=== PATIENT | female | born 1960 | race Caucasian/White ===

== ENCOUNTER 2019-10-04 21:01 | Emergency (ER) | payer SELFPAY | END 2019-10-04 21:13 | disposition left against medical advice (07) | LOC: ED 21:01 | DX: Z53.21 Procedure and treatment not carried out due to patient leaving prior to being seen by health care provider (principal) ==

== ENCOUNTER 2020-04-08 16:57 | Emergency (ER) | payer MEDICARE ==
--- NOTE | 2020-04-08 18:36 | Emergency Department Report ---
Blank Doc - Documentation Documentation: 59-year-old female that presents with bilateral leg swelling. This initial assessment/diagnostic orders/clinical plan/treatment(s) is/are subject to change based on patient's health status, clinical progression and re- assessment by fellow clinical providers in the ED. Further treatment and workup at subsequent clinical providers discretion. Patient/guardians urged not to elope from the ED as their condition may be serious if not clinically assessed and managed. Initial orders include: 1- Patient sent to [facility] for further evaluation and treatment 2- labs 3- EKG
[2020-04-08 21:42] LABS: Basophils % (Auto) 0.6 % (0.0-1.8); Eosinophils % (Auto) 0.7 % (0.0-4.3); Hematocrit 34.8 % (30.3-42.9); Hemoglobin 11.8 gm/dl (10.1-14.3); Lymphocytes % (Auto) 29.8 % (13.4-35.0); Mean Corpuscular HGB Conc 34 % (30-34); Mean Corpuscular Volume 96 fl (79-97); Monocytes # (Auto) 0.7 K/mm3 (0.0-0.8); Monocytes % (Auto) 10.3 % (0.0-7.3); Platelet Count 372 K/mm3 (140-440); Red Blood Count 3.61 M/mm3 (3.65-5.03); Red Cell Distribution Width 14.2 % (13.2-15.2)
[2020-04-08 21:46] LABS: Alanine Aminotransferase 16 units/L (7-56); Albumin 4.3 g/dL (3.9-5); BUN/Creatinine Ratio 11; Blood Urea Nitrogen 9 mg/dL (7-17); Calcium 9.9 mg/dL (8.4-10.2); Hemolysis Index 8
[2020-04-09] MEDS ORDERED: FUROSEMIDE 20 MG TAB PO ONE (07:44)
--- NOTE | 2020-04-09 07:45 | Emergency Department Report ---
ED General Adult HPI - General Chief complaint: Extremity Problem,Nontraumatic Stated complaint: EDEMA PUI?: No Time Seen by Provider: 04/08/20 18:35 Source: patient, RN notes reviewed Mode of arrival: Ambulatory Limitations: No Limitations, Other (Patient is disorganized and is a poor historian) - History of Present Illness Initial comments: The patient was evaluated in the emergency department for symptoms described in the history of present illness. He/she was evaluated in the context of the global COVID-19 pandemic, which necessitated consideration that the patient might be at risk for infection with the virus that causes COVID-19. Institutional protocols and algorithms that pertain to the evaluation of patients at risk for COVID-19 are in a state of rapid change based on information released by regulatory bodies including the CDC and federal and state organizations. These policies and algorithms were followed during the patient's care in the emergency department. Please note that these policies, procedures and recommendations changed on a rapid basis. The patient is a 59-year-old female. She is not known to myself previously. She reportedly has a history of bipolar disorder and diabetes. The patient presents to the ER with a complaint of nontraumatic painless bilateral lower extremity swelling. She tells me it has "been there for a very long time." The patient states that she has been "walking a lot." The patient also states that she is a "time traveler." She reports that she is "traveling through the realms." She denies headache, neck pain, chest pain, abdominal pain, shortness of breath, urinary symptoms, homicidality and suicidality. She states that she does not currently have a gun, but she plans on getting a gun, "to defend myself in case I get robbed." The patient states that she gets "shots" for her chronic psychiatric disease. She states that "I do not like Seroquel, because it makes my beautiful hair fall out, and I am suing them." She states she does not currently take lithium. She has a hospital band on her right upper extremity, "I did not take it off." Location: left, right, lower extremity Quality: constant Improves with: none Worsens with: none Associated Symptoms: denies other symptoms - Related Data Allergies Allergy/AdvReac Type Severity Reaction Status Date / Time Penicillins Allergy Unknown Verified 04/08/20 18:36 ED Review of Systems ROS: Stated complaint: EDEMA Other details as noted in HPI Constitutional: denies: fever Eyes: denies: eye discharge ENT: denies: epistaxis Respiratory: denies: cough Cardiovascular: edema. denies: chest pain Gastrointestinal: denies: abdominal pain, nausea, vomiting, hematemesis, melena, hematochezia Genitourinary: denies: dysuria Musculoskeletal: myalgia Psychiatric: as per HPI. denies: homicidal thoughts, suicidal thoughts ED Past Medical Hx - Past Medical History Hx Diabetes: Yes Hx Psychiatric Treatment: Yes (BIPOLAR) - Surgical History Past Surgical History?: No ED Physical Exam - General Limitations: Other (Patient is somewhat disorganized) General appearance: alert, in no apparent distress - Head Head exam: Present: atraumatic, normocephalic - Eye Eye exam: Present: normal appearance, EOMI. Absent: nystagmus - ENT ENT exam: Present: normal exam, normal orophraynx, mucous membranes moist, normal external ear exam - Neck Neck exam: Present: normal inspection, full ROM. Absent: tenderness, meningismus - Respiratory Respiratory exam: Present: normal lung sounds bilaterally. Absent: respiratory distress, wheezes, rales, rhonchi, stridor - Cardiovascular Cardiovascular Exam: Present: regular rate, normal rhythm, normal heart sounds. Absent: bradycardia, tachycardia, irregular rhythm, systolic murmur, diastolic murmur, rubs, gallop - GI/Abdominal GI/Abdominal exam: Present: soft. Absent: distended, tenderness, guarding, rebound, rigid, pulsatile mass - Extremities Exam Extremities exam: Present: normal inspection, full ROM, pedal edema, other (2+ pulses noted in the bilateral upper and lower extremities. There is no palpable cord. negative Homans sign. Muscular compartments are soft. The pelvis is stable.). Absent: calf tenderness - Back Exam Back exam: Present: normal inspection, full ROM. Absent: tenderness, CVA tenderness (R), CVA tenderness (L), paraspinal tenderness, vertebral tenderness - Neurological Exam Neurological exam: Present: alert, oriented X3, normal gait, other (No facial droop. Tongue midline. Extraocular movements intact bilaterally. Facial sensation intact to light touch in V1, V2, V3 distribution bilaterally. 5 and a 5 strength in 4 extremities. Sensation intact to light touch in 4 extremities.). Absent: motor sensory deficit - Psychiatric Psychiatric exam: Present: flat affect. Absent: homicidal ideation, suicidal ideation - Skin Skin exam: Present: warm, dry, intact, normal color. Absent: rash ED Course Vital Signs 04/08/20 04/09/20 04/09/20 18:38 07:14 19:31 Temperature 98.6 F 98.3 F Pulse Rate 87 94 H 99 H Respiratory 16 18 18 Rate Blood Pressure 144/81 133/76 Blood Pressure 133/109 [Right] O2 Sat by Pulse 100 99 97 Oximetry 04/10/20 04/10/20 04/10/20 01:49 09:06 20:50 Temperature 98.0 F 97.5 F L 98.6 F Pulse Rate 80 74 83 Respiratory 18 18 18 Rate Blood Pressure 134/72 135/76 Blood Pressure 127/66 [Right] O2 Sat by Pulse 96 100 97 Oximetry 04/11/20 02:40 Temperature 98.6 F Pulse Rate 81 Respiratory 18 Rate Blood Pressure Blood Pressure 105/52 [Right] O2 Sat by Pulse 98 Oximetry - Reevaluation(s) Reevaluation #1: 04/09/20 08:36 Differential diagnosis, including but not limited to: Dependent edema, renal insufficiency, hepatic insufficiency, congestive heart failure, psychosis Disorganized behavior Assessment and plan: 04/09/20 08:37 59-year-old female with a primary complaint of bilateral lower extremity swelling, Who is not tachycardic, tachypneic or hypoxic, who appears to have dependent edema, with normal renal function and hepatic function. However, she is somewhat disorganized, and has bizarre thought process. She is cooperative, pleasant, alert to name, location and month, but her thought process appears to be circuitous. Placed patient on hold status, obtain serum toxicologic studies, initiate Lasix therapy, and obtain psychiatric consultation. X-ray of the chest is reviewed and appreciated, patient will be changed out into a green gown, as per protocol, and we will repeat x-ray of the chest. Reevaluation #2: 04/09/20 12:09 Repeat x-ray showed persistent foreign body in the right upper quadrant. CT scan of the abdomen pelvis was thus obtained, especially given history of disorganized behavior and psychosis, and demonstrated a small foreign body in the stomach. Patient still making comments about witchcraft. Patient continues to remain on hold status, and a psychiatric consultation is pending. They have verbally requested a coronavirus test. We do not clinically suspect coronavirus. However, in order to facilitate p lacement, this test will be ordered. At this point in time, patient does not appear to have an immediate medical contraindication to psychiatric admission, evaluation, consultation and placement. Urinalysis is pending at this time. Reevaluation #3: 04/11/20 08:04 Patient continues to remain medically suitable for psychiatric placement, consultation and evaluation. The patient is refusing her COVID test. The patient in my pain does not appear to exhibit decision-making capacity. The patient is insisting that she had an outpatient COVID test done last week, which was negative, "somewhere in [facility]." She states the test was performed by "a doctor that I have never seen before." She does not know where this test took place specifically, and who ordered the test. She also would not give me the results of the test. She also tells me " are you trying to make me a witch." While the patient does not appear to have an emergent medical condition at this time, especially when that would preclude psychiatric placement and evaluation, I would formally request/recommend a capacity evaluation by the psychiatry team, to determine the patient's capacity for refusal of nonemergent diagnostic testing. It is my opinion that the patient does not appear to have decision-making capacity, however, this test is not emergently indicated medically, therefore, we cannot obtain the test without her consent, or without consent of a surrogate decision-maker. ED Medical Decision Making - Lab Data Result diagrams: 04/08/20 19:35 04/08/20 19:35 Vital Signs 04/08/20 04/09/20 18:38 07:14 Temperature 98.6 F Pulse Rate 87 94 H Respiratory 16 18 Rate Blood Pressure 144/81 Blood Pressure 133/109 [Right] O2 Sat by Pulse 100 99 Oximetry Lab Results 04/08/20 04/08/20 Range/Units 19:35 19:35 WBC 6.8 (4.5-11.0) K/mm3 RBC 3.61 L (3.65-5.03) M/mm3 Hgb 11.8 (10.1-14.3) gm/dl Hct 34.8 (30.3-42.9) % MCV 96 (79-97) fl MCH 33 H (28-32) pg MCHC 34 (30-34) % RDW 14.2 (13.2-15.2) % Plt Count 372 (140-440) K/mm3 Lymph % (Auto) 29.8 (13.4-35.0) % Ocean % (Auto) 10.3 H (0.0-7.3) % Eos % (Auto) 0.7 (0.0-4.3) % Baso % (Auto) 0.6 (0.0-1.8) % Lymph # (Auto) 2.0 (1.2-5.4) K/mm3 Ocean # (Auto) 0.7 (0.0-0.8) K/mm3 Eos # (Auto) 0.0 (0.0-0.4) K/mm3 Baso # (Auto) 0.0 (0.0-0.1) K/mm3 Seg Neutrophils % 58.6 (40.0-70.0) % Seg Neutrophils # 4.0 (1.8-7.7) K/mm3 Sodium 141 (137-145) mmol/L Potassium 4.7 (3.6-5.0) mmol/L Chloride 99.6 (98-107) mmol/L Carbon Dioxide 27 (22-30) mmol/L Anion Gap 19 mmol/L BUN 9 (7-17) mg/dL Creatinine 0.8 (0.6-1.2) mg/dL Estimated GFR > 60 ml/min BUN/Creatinine Ratio 11 % Glucose 144 H (65-100) mg/dL Calcium 9.9 (8.4-10.2) mg/dL Total Bilirubin 0.50 (0.1-1.2) mg/dL AST 14 (5-40) units/L ALT 16 (7-56) units/L Alkaline Phosphatase 180 H (35-129) units/L NT-Pro-B Natriuret Pep 28.17 (0-900) pg/mL Total Protein 6.6 (6.3-8.2) g/dL Albumin 4.3 (3.9-5) g/dL Albumin/Globulin Ratio 1.9 % - Radiology Data Radiology results: report reviewed, image reviewed Print Report Referring Physician: ОЛЕГ VALLEJO Patient Name: LINDA GU Date of : 1960 Sex: Female Report Date: 2020-04-09 Report Status: Finalized Findings [facility] [address] [place] [address] XRay Report Signed Patient: LINDA GU MR#: [id number] : 1960 Acct:[id number] Age/Sex: 59 / F ADM Date: 04/08/20 Loc: ED Attending Dr: Ordering Physician: ОЛЕГ VALLEJO MD Date of Service: 04/09/20 Procedure(s): XR chest 1V ap Accession Number(s): [id number] cc: ОЛЕГ VALLEJO MD Fluoro Time In Minutes: CHEST 1 VIEW INDICATION / CLINICAL INFORMATION: lower exct edema. COMPARISON: None available. FINDINGS: SUPPORT DEVICES: None. HEART / MED IASTINUM: No significant abnormality. LUNGS / PLEURA: No significant pulmonary or pleural abnormality. No pneumothorax. No interstitial pulmonary edema or pleural effusion. ADDITIONAL FINDINGS: There is a round radiopaque foreign object projecting over the right upper abdominal quadrant. I presume this is on the patient's person and not within the patient. IMPRESSION: 1. No acute pulmonary or pleural disease. . Signer Name: Hillary Barnes MD Signed: 04/09/2020 8:16 AM Workstation Name: [id number] Transcribed By: JR Dictated By: Hillary Barnes MD Electronically Authenticated By: Hillary Barnes MD Signed Date/Time: 04/09/20815 DD/ 4 TD/TT: Critical care attestation.: If time is entered above; I have spent that time in minutes in the direct care of this critically ill patient, excluding procedure time. ED Disposition Clinical Impression: Dependent edema, Foreign body ingestion, Disorganized behavior, Medical clearance for psychiatric admission Disposition: DC/TX-65 PSY HOSP/PSY UNIT Is pt being admited?: No Does the pt Need Aspirin: No Condition: Stable Referrals: KARINA MORELOSKENTON MD KISHOR [Primary Care Provider] - 3-5 Days
--- NOTE | 2020-04-09 08:20 | XRay Report ---
CHEST 1 VIEW INDICATION / CLINICAL INFORMATION: lower exct edema. COMPARISON: None available. FINDINGS: SUPPORT DEVICES: None. HEART / MEDIASTINUM: No significant abnormality. LUNGS / PLEURA: No significant pulmonary or pleural abnormality. No pneumothorax. No interstitial pul monary edema or pleural effusion. ADDITIONAL FINDINGS: There is a round radiopaque foreign object projecting over the right upper abdom inal quadrant. I presume this is on the patient's person and not within the patient. IMPRESSION: 1. No acute pulmonary or pleural disease. . Signer Name: Hillary Barnes MD Signed: 04/09/2020 8:16 AM Workstation Name: [id number]
--- NOTE | 2020-04-09 08:55 | XRay Report ---
CHEST 1 VIEW INDICATION / CLINICAL INFORMATION: repeat for foreign body assessment. COMPARISON: 04/09/2020 at 0743 hours FINDINGS: SUPPORT DEVICES: None. HEART / MEDIASTINUM: No significant abnormality. LUNGS / PLEURA: No significant pulmonary or pleural abnormality. No pneumothorax. ADDITIONAL FINDINGS: Round metallic object persists in the right upper quadrant IMPRESSION: Round metallic object remains in the right upper quadrant unchanged from earlier exam Signer Name: Franklin Hicks MD FACR Signed: 04/09/2020 8:51 AM Workstation Name: [email or web address]
--- NOTE | 2020-04-09 11:47 | Cat Scan Report ---
CT ABDOMEN AND PELVIS WITHOUT IV CONTRAST INDICATION: metallic foreign body ingestion. COMPARISON: None available. TECHNIQUE: All CT scans at this facility use dose modulation, automated exposure control, iterative reconstructi on or weight based dosing, when appropriate, to reduce radiation dose to as low as reasonably achieva ble. FINDINGS: Lung Bases: No significant abnormality. Skeletal System: No acute abnormality. ABDOMEN: Liver: There is a punctate hypodensity in the right lobe which is most likely a cyst. Gallbladder: No significant abnormality. Bile Ducts: No significant abnormality. Pancreas: No significant abnormality. Spleen: No significant abnormality. Adrenals: No significant abnormality. Right Kidney: Hypodense cortical lesions are likely cysts. Left Kidney: No significant abnormality. Upper GI tract: The stomach is distended with food. There is a punctate density within the distal sto mach/antrum (series 2 image 53). Lymph Nodes: No significant adenopathy. Aorta: No significant abnormality. Additional Findings: No significant abnormality. PELVIS: Colon: No acute abnormality. Diverticulosis is noted. Urinary Bladder and Distal Ureters: No significant abnormality. Appendix: No significant abnormality. Lymph Nodes: No significant adenopathy. Additional Findings: Somewhat circular, serpiginous calcification is seen in the right ovary measurin g 1.1 cm on series 2 image 131. This may be a dystrophic cyst. IMPRESSION: 1. Punctate 4-5 mm density within the gastric antrum could be an ingested foreign body. The stomach is distended with food. 2. Incidental findings as above. Signer Name: Dave Almanza MD Signed: 04/09/2020 11:43 AM Workstation Name: [id number]
[2020-04-09] MEDS ORDERED: LORazepam 2 MG/ML VIAL IM PRN (11:57)
[2020-04-09] MEDS ORDERED: HALOPERIDOL LACTATE 5 MG/1 ML INJ IM PRN (11:57)
[2020-04-09] MEDS ORDERED: ZIPRASIDONE MESYLATE 20 MG VIAL IM ONE (18:21)
[2020-04-10 10:04] LABS: Bilirubin,Urine NEG (Negative); Blood,Urine NEG (Negative); Color,Urine Yellow (Yellow); Mucus,Urine FEW /HPF; Protein,Urine <15 mg/dL mg/dL (Negative); WBC,Urine < 1.0 /HPF (0.0-6.0)
[2020-04-10 10:25] LABS: Amphetamine Screen,Urine Negative; Benzodiazepines Screen,Urine Negative; Cannabinoid Screen,Urine Negative; Cocaine Screen,Urine Negative; Methadone Screen,Urine Negative; Opiate Screen,Urine Negative
[2020-04-10] MEDS: FUROSEMIDE 20 MG TAB PO SCH (11:03)
--- NOTE | 2020-04-10 11:26 | Consultation ---
History of Present Illness - Reason for Consult Consult date: 04/10/20 Reason for consult: MHE Requesting physician: ОЛЕГ VALLEJO - History of Present Psychiatric Illness Per ED Provider: The patient is a 59-year-old female. She is not known to myself previously. She reportedly has a history of bipolar disorder and diabetes. The patient presents to the ER with a complaint of nontraumatic painless bilateral lower extremity swelling. She tells me it has "been there for a very long time." The patient states that she has been "walking a lot." The patient also states that she is a "time traveler." She reports that she is "traveling through the realms." She denies headache, neck pain, chest pain, abdominal pain, shortness of breath, urinary symptoms, homicidality and suicidality. She states that she does not currently have a gun, but she plans on getting a gun, "to defend myself in case I get robbed." The patient states that she gets "shots" for her chronic psychiatric disease. She states that "I d o not like Seroquel, because it makes my beautiful hair fall out, and I am suing them." She states she does not currently take lithium. Per MHA: Pt is a 59 yo AA male presenting to ED for MHE, as pt reported altered mental status, disorganized thoughts. During ax, pt presented with cooperative behaviors, tangential speech and incongruent affect. Pt presents with disiorganized thoughts. Pt states "Witchcraft wont let me live, I am here to go to the next level, I am diagnosed with Bipolar but I am not crazy. PT unable to identify triggers. Pt is unable to provide current address or mental health providers. Pt states "I live at whatever address witchcraft resides". Pt denies hx of attempts. Pt denies SI/ HI. Pt reports auditory hallucinations. Pt denies command hallucinations or visual hallucinations. Pt reports hx of Bioplar dx. Pt reprots noncompliance with medicatons. Pt unable to provide list of medications or mh provider. Pt denies drug or alcohol use or abuse. PSYCH HPI Patient is 59-year-old unemployed currently on SSI income with unknown housing situation who has past psychiatric history of bipolar and past medical history of diabetes were presented to the ER with complaint of swelling to the lower extremity but then was found to be disorganized in thought process. Patient says the reason why she is in the hospital is because of a swollen leg, says she was brought here by the bus, endorses having a daughter with does not care for her, patient states she is , but does not know what her is and states she has been can live with her if he finds her, when asked if where is, patient says he is in another world, not because he still has a heartbeat. Patient is alert and oriented to the city/state and hospital environment. Patient endorses poor sleep poor appetite reports feeling depressed because she misses her , she appears irritable. PAST PSYCHIATRIC HISTORY Diagnoses: Bipolar Suicide attempts or Self-harm behavior: none reported Prior psychiatric hospitalizations: Yes Substance Abuse history: none reported Previous psychiatric medications tried: Yes Outpatient treatment: none reported PAST MEDICAL HISTORY: DM Family Psychiatric History: None reported or documented SOCIAL HISTORY Marital Status: / based on patients conflicting infor Living Arrangements: unknown Employment Status: [employer] Access to guns/weapons: none reported Education: Some college History of Abuse: none reported Legal History: unknown REVIEW OF SYSTEMS ROS cannot be reliably obtained from the patient due to her confusion MENTAL STATUS EXAMINATION General Appearance and Behavior: Age appropriate, fair good hygiene, wearing appropriate clothes, lying in bed, poor eye contact, uncooperative irritable with questioning. Cooperation: Participating, Withdrawn, and Guarded Psychomotor Behavior: unremarkable and within normal limits Mood: Depressed, Affect and affective range: Angry, , irritable Thought Process:Illogical, Thought Content: Obsessions, Illogical, Grandiose Speech: Normal volume, Regular rate and rhythm Intellectual Functioning: Average Suicidal Ideation: Denies SI Homicidal Ideation: Denies HI Impulse Control: Impaired Insight and Judgment: Limited insight and judgment Memory: Prospective memory impaired Attention: Divided attention impaired Orientation: Alert, oriented, and confused Assessment and Plan - Psychiatric problem (1) Bipolar 1 disorder Current Visit: Yes Status: Acute Treatment Plan MEDICATIONS: Valproate and risperdol Risks, benefits and alternatives of medications discussed with the patient, questions answered and consent obtained from patient. PSYCHOTHERAPY: Supportive psychotherapy provided MEDICAL: Per primary team DELIRIUM PRECAUTIONS: Please re-orient patient frequently, keep lights on during the day, and minimize benzodiazepines and opiates as these medications could worsen patient's confusion. IT APPLICATION SUPPORT ANALYST: DISPOSITION: Do Recommend acute inpatient psychiatric hospitalization at this time LEGAL STATUS: 1013 FOLLOW-UP: Will follow Thank you for the consult. Please contact with any questions and/or concerns. Medications and Allergies Allergies Allergy/AdvReac Type Severity Reaction Status Date / Time Penicillins Allergy Unknown Verified 04/08/20 18:36 Active Meds: Active Medications Furosemide (Lasix) 20 mg PO QDAY PHONG Last Admin: 04/10/20 11:03 Dose: Not Given Documented by: Haloperidol Lactate (Haldol) 5 mg IM Q6HR PRN PRN Reason: Agitation Last Admin: 04/09/20 18:27 Dose: 5 mg Documented by: Lorazepam (Ativan) 2 mg IM Q4HR PRN PRN Reason: Agitation Last Admin: 04/09/20 18:26 Dose: 2 mg Documented by: Mental Status Exam - Vital signs Last Vital Signs Temp 97.5 F L 04/10/20 09:06 Pulse 74 04/10/20 09:06 Resp 18 04/10/20 09:06 BP 135/76 04/10/20 09:06 Pulse Ox 100 04/10/20 09:06 Results Result Diagrams: 04/08/20 19:35 04/08/20 19:35 Abnormal lab results 04/10/20 Range/Units 09:38 POC Glucose 153 H (70-105) All other labs normal. Assessment and Plan - Psychiatric problem (1) Bipolar 1 disorder Current Visit: Yes Status: Acute
[2020-04-10] MEDS ORDERED: risperiDONE 0.25 MG TAB PO SCH (12:00)
[2020-04-10] MEDS: OMEGA-3 FATTY ACIDS/FISH OIL 1 GRAM CAP PO SCH ×2 (13:46→22:38)
[2020-04-10] MEDS: risperiDONE 1 MG TAB PO SCH ×2 (13:53→22:38)
[2020-04-10] MEDS: VALPROIC ACID 250 MG CAP PO SCH ×2 (18:46→22:39)
[2020-04-10] MEDS ORDERED: traZODone 50 MG TAB PO SCH (22:00)
[2020-04-11] MEDS: VALPROIC ACID 250 MG CAP PO SCH ×3 (08:06→20:10)
[2020-04-11] MEDS: OMEGA-3 FATTY ACIDS/FISH OIL 1 GRAM CAP PO SCH (09:29)
[2020-04-11] MEDS: FUROSEMIDE 20 MG TAB PO SCH (09:30)
[2020-04-11] MEDS: risperiDONE 1 MG TAB PO SCH (09:30)
--- NOTE | 2020-04-11 13:11 | Consultation ---
History of Present Illness - Reason for Consult Consult date: 04/11/20 Reason for consult: MHE Requesting physician: ОЛЕГ VALLEJO - History of Present Psychiatric Illness PSYCH Patient seen this AM, appears irritated, says she does not want wicthcraft, hence why she refused covid testing, patient still disorganized, talks without impulse. Patient says she wants to be alone, does not want anyone bothering her. REVIEW OF SYSTEMS ROS cannot be reliably obtained from the patient due to her confusion MENTAL STATUS EXAMINATION General Appearance and Behavior: Age appropriate, fair good hygiene, wearing appropriate clothes, lying in bed, poor eye contact, uncooperative irritable with questioning. Cooperation: Participating, Withdrawn, and Guarded Psychomotor Behavior: unremarkable and within normal limits Mood: "I dont know" Affect and affective range: Angry, , irritable Thought Process:Illogical, Thought Content: Obsessions, Illogical, Grandiose Speech: Normal volume, Regular rate and rhythm Intellectual Functioning: Average Suicidal Ideation: Denies SI Homicidal Ideation: Denies HI Impulse Control: Impaired Insight and Judgment: Limited insight and judgment Memory: Prospective memory impaired Attention: Divided attention impaired Orientation: Alert, oriented, and confused Assessment and Plan - Psychiatric problem (1) Bipolar 1 disorder Current Visit: Yes Status: Acute Treatment Plan MEDICATIONS: Valproate and risperdol Risks, benefits and alternatives of medications discussed with the patient, questions answered and consent obtained from patient. PSYCHOTHERAPY: Supportive psychotherapy provided MEDICAL: Per primary team DELIRIUM PRECAUTIONS: Please re-orient patient frequently, keep lights on during the day, and minimize benzodiazepines and opiates as these medications could worsen patient's confusion. FINISHER MAP AND CHART: DISPOSITION: Do Recommend acute inpatient psychiatric hospitalization at this time LEGAL STATUS: 1013 FOLLOW-UP: Will follow Thank you for the consult. Please contact with any questions and/or concerns. Medications and Allergies Allergies Allergy/AdvReac Type Severity Reaction Status Date / Time Penicillins Allergy Unknown Verified 04/08/20 18:36 Active Meds: Active Medications Fish Oil (Fish Oil) 2,000 mg PO BID [facility] Last Admin: 04/11/20 09:29 Dose: Not Given Documented by: Furosemide (Lasix) 20 mg PO QDAY PHONG Last Admin: 04/11/20 09:30 Dose: Not Given Documented by: Haloperidol Lactate (Haldol) 5 mg IM Q6HR PRN PRN Reason: Agitation Last Admin: 04/09/20 18:27 Dose: 5 mg Documented by: Lorazepam (Ativan) 2 mg IM Q4HR PRN PRN Reason: Agitation Last Admin: 04/09/20 18:26 Dose: 2 mg Documented by: Risperidone (Risperdal) 1 mg PO BID [facility] Last Admin: 04/11/20 09:30 Dose: Not Given Documented by: Trazodone HCl (Desyrel) 50 mg PO QHS [facility] Last Admin: 04/10/20 22:38 Dose: Not Given Documented by: Valproic Acid (Depakene) 250 mg PO TID [facility] Last Admin: 04/11/20 08:06 Dose: Not Given Documented by: Mental Status Exam - Vital signs Last Vital Signs Temp 98.6 F 04/11/20 02:40 Pulse 81 04/11/20 02:40 Resp 18 04/11/20 02:40 BP 105/52 04/11/20 02:40 Pulse Ox 98 04/11/20 02:40 Results Result Diagrams: 04/08/20 19:35 04/08/20 19:35 All other labs normal. Assessment and Plan - Psychiatric problem (1) Bipolar 1 disorder Current Visit: Yes Status: Acute
[2020-04-11 19:45] VITALS: BP 118/67
== END 2020-04-11 20:11 ==
LOC: ED 16:57
DX: T18.2XXA Foreign body in stomach, initial encounter (principal); R60.1 Generalized edema; E11.9 Type 2 diabetes mellitus without complications; F31.9 Bipolar disorder, unspecified; Z88.0 Allergy status to penicillin; Z04.6 Encounter for general psychiatric examination, requested by authority; W45.8XXA Other foreign body or object entering through skin, initial encounter; Y93.89 Activity, other specified; Y92.89 Other specified places as the place of occurrence of the external cause; Y99.8 Other external cause status
CPT/HCPCS: 36415; 80053; 82550; 83735; 83880; 85025; 96372; 99285; J1630; J2060; 80320; G0480

== ENCOUNTER 2020-06-24 04:24 | Emergency (ER) | payer MEDICARE ==
[2020-06-24 04:44] VITALS: BP 143/74
[2020-06-24 05:21] LABS: Basophils % (Auto) 0.3 % (0.0-1.8); Eosinophils # (Auto) 0.1 K/mm3 (0.0-0.4); Hematocrit 37.4 % (30.3-42.9); Hemoglobin 12.5 gm/dl (10.1-14.3); Lymphocytes # (Auto) 1.6 K/mm3 (1.2-5.4); Lymphocytes % (Auto) 22.5 % (13.4-35.0); Mean Corpuscular HGB Conc 33 % (30-34); Mean Corpuscular Volume 98 fl (79-97); Monocytes # (Auto) 0.8 K/mm3 (0.0-0.8); Monocytes % (Auto) 11.4 % (0.0-7.3); Platelet Count 310 K/mm3 (140-440); Red Blood Count 3.82 M/mm3 (3.65-5.03); Red Cell Distribution Width 15.3 % (13.2-15.2)
[2020-06-24 05:49] LABS: BUN/Creatinine Ratio 24; Blood Urea Nitrogen 22 mg/dL (7-17); Calcium 9.3 mg/dL (8.4-10.2); Hemolysis Index 7
== END 2020-06-24 05:00 | disposition left against medical advice (07) ==
LOC: ED 04:24
DX: F32.9 Major depressive disorder, single episode, unspecified (principal); Z53.21 Procedure and treatment not carried out due to patient leaving prior to being seen by health care provider
CPT/HCPCS: 36415; 80048; 80320; 85025; G0480